=== PATIENT | male | born 1945 | race Caucasian/White ===

== ENCOUNTER → 2017-05-01 | Outpatient (CLI) | payer OTHER ==
[~2017-05-01] MED LIST: ADVIL PM1 TABLET PO; ASPIR-LOW81 MG PO; BABY ASPIRIN81 M1 PO; BENTYL10 MG; CARDIZEM CD,CA180 MG PO; CHILDREN'S ASPI81 M1 PO; COLACE100 MG PO; COMBIVENT INH14.7 GM IH; CRESTOR20 MG PO; CRESTOR40 MG PO; DICYCLOMINE HCL20 MG PO; DIGOXIN250 MCG PO; DOCUSATE SODIU100 MG PO; ELIQUIS5 MG PO; ENALAPRIL MALEA20 M1 PO; ENALAPRIL MALEA20 MG PO; EXCEDRIN EXTRA1 EACH PO; EXCEDRIN PO; FERROUS GLUCON325 M3 PO; FLEXERIL10 MG PO; FORADIL AEROLI12 MCG IH; FUROSEMIDE20 MG PO; FUROSEMIDE40 MG PO; Habitrol,Nicoderm CQ TD; K-Dur PO; KLOR-CON M2020 MEQ PO; LEVAQUIN500 MG PO; LEVAQUIN750 MG PO; LEVOFLOXACIN750 MG PO; LIPOFEN50 MG PO; LISINOPRIL40 MG PO; LO-DOSE ASPIRIN81 M1 PO; LOPRESSOR12.5 MG PO; LYRICA50 MG PO; Lasix PO; Levaquin PO; METHYLDOPA250 MG PO; METOPROLOL SUCC25 MG PO; METOPROLOL SUCC50 MG PO; MOBIC15 MG PO; MUCINEX DM ER1 EACH PO; MUCINEX PO; NEXIUM 24HR20 MG PO; NEXIUM20 MG PO; PANTOPRAZOLE SO40 MG PO; PERCOCET 5/31 TABLET PO; PREDNISONE10 MG; PREDNISONE10 MG PO; PREDNISONE20 MG PO; PRILOSEC20 MG PO; PROVENTIL; PROVENTIL,200 INHALA; Protonix PO; SPIRIVA RESPIMAT4 GM IH; SPIRIVA1 INHALATI IH; STOOL SOFTENER100 MG PO; SYMBICORT60 INHALAT IH; TERAZOSIN HCL1 MG PO; TERAZOSIN HCL2 MG PO; Toprol XL PO; VENTOLIN HFA18 GM IH; VITAMIN B122500 MCG PO; VOLTAREN75 MG PO; Zestril,Prinivil PO
== END | disposition home or self-care (01) ==
LOC: OPR 08:26 → EDSTATUS 09:00
DX: C34.10 Malignant neoplasm of upper lobe, unspecified bronchus or lung (principal); J44.9 Chronic obstructive pulmonary disease, unspecified; Z87.891 Personal history of nicotine dependence; I10 Essential (primary) hypertension; E78.5 Hyperlipidemia, unspecified; I25.10 Atherosclerotic heart disease of native coronary artery without angina pectoris; K21.9 Gastro-esophageal reflux disease without esophagitis; Z79.82 Long term (current) use of aspirin
CPT/HCPCS: 71045; 77012; 88305; 88341 TC; 88342 TC; J3010

== ENCOUNTER → 2017-05-15 | Outpatient (CLI) | payer OTHER ==
[2017-05-15 09:30] LABS: CARBOXY HGB 0.2 % (0-5); METHEMOGLOBIN 0.4 % (0-1.5); PO2 64 mm Hg (80-100)
[2017-05-15 09:31] LABS: FI02 21 %; PCO2 42 mm Hg (35-45); SITE RR
== END | disposition home or self-care (01) ==
LOC: RES 09:12
PROVIDERS: Thoracic Surgery (Cardiothoracic Vascular Surgery)
DX: J44.9 Chronic obstructive pulmonary disease, unspecified (principal); J98.4 Other disorders of lung; R91.1 Solitary pulmonary nodule
CPT/HCPCS: 36600; 82803; 94060; 94726; 94729

== ENCOUNTER 2017-06-05 08:47 | Day surgery (SDC) | payer OTHER ==
[~2017-06-05] VITALS: Ht 165.1 cm; Wt 79.3 kg
[~2017-06-05 08:47] MED LIST changes: +TYLENOL PM EX-1 EACH PO
[2017-06-05 09:24] VITALS: BP 114/66
[2017-06-05 09:46] LABS: PTT 29.1 SEC (25-37)
[2017-06-05 14:02] VITALS: BP 133/59
[2017-06-05 15:05] VITALS: BP 142/79
[2017-06-06] MEDS ORDERED: CIPRO500 MG PO (01:11)
== END 2017-06-05 15:05 | disposition home or self-care (01) ==
LOC: SDC 08:47
PROVIDERS: Thoracic Surgery (Cardiothoracic Vascular Surgery)
PROC: 07B74ZX Excision of Thorax Lymphatic, Percutaneous Endoscopic Approach, Diagnostic (ICD-10-PCS; principal; 2017-06-05)
DX: C34.90 Malignant neoplasm of unspecified part of unspecified bronchus or lung (principal); I10 Essential (primary) hypertension; J44.9 Chronic obstructive pulmonary disease, unspecified; I25.2 Old myocardial infarction; K21.9 Gastro-esophageal reflux disease without esophagitis; Z79.82 Long term (current) use of aspirin; Z87.891 Personal history of nicotine dependence
CPT/HCPCS: 85610; 85730; 86850; 86900; 86901; 88305; 94640; J0690; J1100; J1885; J2370; J2405; J2710; J3010; S0020

== ENCOUNTER 2017-06-05 22:32 | Emergency (ER) | payer OTHER ==
[~2017-06-05] VITALS: Ht 165.1 cm; Wt 81.7 kg
[2017-06-06 00:33] LABS: APPEARANCE SL.HAZY ((CLEAR)); BILIRUBIN NEGATIVE; BLOOD NEGATIVE; COLOR YELLOW ((YELLOW)); GLUCOSE (STRIP) NEGATIVE; KETONES NEGATIVE; LEUKOCYTES LARGE; NITRITE NEGATIVE; PROTEIN (STRIP) 30; UROBILINOGEN 0.2 MG/DL (0.2-1.0)
[2017-06-06 00:48] LABS: BACTERIA NONE SEEN /HPF; EPITHELIAL CELLS RARE /HPF; HYALINE CASTS 0-5 /LPF; MUCUS TRACE /LPF; RED BLOOD CELLS 0-5 /HPF (0-5); UCUL ADDED? YES; WHITE BLOOD CELLS 15-20 /HPF (0-5)
[2017-06-06 00:48] LABS: HEMATOCRIT 38.6 % (38.0-50.0); HEMOGLOBIN 12.3 G/DL (12.5-16.6); MCH 30.4 PG (29.0-34.0); MCHC 31.9 G/DL (30.0-36.0); MCV 95.3 FL (86-99); PLATELET COUNT 257 K/uL (156-360); RBC DIS.WIDTH-CV 14.7 % (11.8-14.6); RBC DIS.WIDTH-SD 52.1 % (39-53); RED BLOOD COUNT 4.05 M/uL (4.00-5.50); WHITE BLOOD COUNT 12.8 K/uL (4.1-10.2)
[2017-06-06 01:00] LABS: CHLORIDE 103 mEq/L (99-109); POTASSIUM 4.7 mEq/L (3.7-5.4); SODIUM 139 mEq/L (136-147)
[2017-06-06 01:01] LABS: GLUCOSE 116 mg/dL (70-99)
[2017-06-06 01:05] LABS: CREATININE 0.9 mg/dL (0.6-1.3); GFR ESTIMATE (CALCULATED) > 59 mL/min/ (58.99-99999)
[2017-06-06 01:06] LABS: UREA NITROGEN (BUN) 18 mg/dL (9-23)
[2017-06-06] MEDS ORDERED: CIPRO500 MG PO (01:11)
[2017-06-06 01:26] VITALS: BP 131/89
== END 2017-06-06 01:25 | disposition home or self-care (01) ==
LOC: EME 22:32
PROVIDERS: Physician Assistant
DX: N39.0 Urinary tract infection, site not specified (principal); Z98.890 Other specified postprocedural states; I10 Essential (primary) hypertension; E78.5 Hyperlipidemia, unspecified; I25.2 Old myocardial infarction; J44.9 Chronic obstructive pulmonary disease, unspecified; Z90.49 Acquired absence of other specified parts of digestive tract; Z98.1 Arthrodesis status; Z87.891 Personal history of nicotine dependence
CPT/HCPCS: 80048; 81003; 85027; 87086; 99281; 99284